=== PATIENT | male | born 1945 | race Caucasian/White ===

== ENCOUNTER → 2018-01-11 | Outpatient (CLI) | payer OTHER ==
[~2018-01-11] MED LIST: IBUPROFEN 800800 M1 PO; LIPITOR20 MG PO; LISINOPRIL10 MG PO; NAPROSYN500 MG PO; PREDNISONE 20 M20 M1 PO; PRILOSEC20 MG PO; TRAMADOL 50 MG50 MG PO; VALACYCLOVIR1000 MG PO
== END ==
LOC: M.CT 01-10 14:00
DX: N40.0 Benign prostatic hyperplasia without lower urinary tract symptoms (principal); N28.9 Disorder of kidney and ureter, unspecified; K68.9 Other disorders of retroperitoneum; M43.20 Fusion of spine, site unspecified; K57.30 Diverticulosis of large intestine without perforation or abscess without bleeding; I10 Essential (primary) hypertension; E78.5 Hyperlipidemia, unspecified; K21.9 Gastro-esophageal reflux disease without esophagitis

== ENCOUNTER → 2018-01-19 | Outpatient (CLI) | payer OTHER ==
[2018-01-19 10:15] LABS: CREATININE 1.4 mg/dL (0.6-1.3)
== END ==
LOC: M.LAB 09:49 → M.CT 11:00
PROVIDERS: Nurse Practitioner Family
DX: D18.03 Hemangioma of intra-abdominal structures (principal); K57.30 Diverticulosis of large intestine without perforation or abscess without bleeding; N40.0 Benign prostatic hyperplasia without lower urinary tract symptoms; R31.0 Gross hematuria; Z90.49 Acquired absence of other specified parts of digestive tract; R22.9 Localized swelling, mass and lump, unspecified

== ENCOUNTER → 2018-03-14 | Outpatient (CLI) | payer OTHER ==
[~2018-03-14] VITALS: Ht 175.3 cm; Wt 93.4 kg
[2018-03-14] VITALS (11 sets, daily range): BP systolic 90–1104; BP diastolic 60–72
[2018-03-14 09:16] LABS: HEMATOCRIT 44.8 % (42.0-52.0); HEMOGLOBIN 15.3 gm/dL (14.0-18.0); MCH 26.9 pg (26.0-34.0); MCHC 34.1 g/dL (28.0-37.0); MCV 78.9 fL (80.0-100.0); MPV 8.9 fl. (7.2-11.1); RBC 5.68 mil/uL (4.50-6.00); RDW-CV 15.1 % (10.5-14.5); WBC 5.1 thou/uL (4.0-11.0)
[2018-03-14 09:22] LABS: CALCIUM 8.6 mg/dL (8.5-10.1); CREATININE 1.3 mg/dL (0.6-1.3); POTASSIUM 3.7 mmol/L (3.5-5.1)
[2018-03-14 09:27] LABS: ALBUMIN 3.9 g/dL (3.4-5.0); TOTAL BILIRUBIN 0.7 mg/dL (<0.1-1.0); TOTAL PROTEIN 6.9 g/dL (6.4-8.2)
[2018-03-14 09:42] LABS: APTT 27.3 Seconds (25.0-31.3); INR 1.1; PROTIME 10.6 Seconds (9.20-11.50)
--- NOTE | 2018-06-08 15:08 | PATH ---
[address] [address] PATHOLOGY RPT PROCEDURE Name: JORGE VIDAL III Room: [facility]#: [id number] Admission: 03/14/18 Date of : 43 Discharge: Report #: [id number] Path Case #: [id number] [facility] Accession Number: [id number] . 01 Material submitted: . RETROPERITONEAL MASS LEFT . 01 Clinical history: . Retroperitoneal mass needle biopsy . 02 Diagnosis: Left retroperitoneal mass, image-guided core biopsies: - Myelolipoma. See comment. [facility] [place]/03/16/2018 . 02 Comment: Multiple skinny needle cores show benign-appearing myeloid elements in association with fat typical of myelolipoma. Reviewed with Dr. Rebekah Cuevas (hematopathologist), who agrees with the diagnosis. Preliminary findings relayed to Dr. Blanca at approximately 10:50 on 03/15/2018. (ROGER:david;03/16/2018) . 02 Electronically signed: . Conrad Araiza MD, Pathologist NPI- [id number] . 01 Gross description: . The specimen is received in formalin, labeled "Jorge Vidal III, left retroperitoneal mass", are several mccoy brown tissue cores ranging from 0.6 cm up to 0.1 cm in greatest dimension and measuring 0.6 x 0.2 cm in aggregate, entirely submitted in A1-A3. ([facility]; 03/14/2018) Also received in Jimenez's fixative are three cores of soft tissues, labeled "Jorge Vidal III, left retroperitoneal mass". The speicmen is filtered and entirely submitted in cassette A4. SHS/SHS . 02 Pathologist provided ICD-10: D17.79 . 02 CPT . 564361 Performed at: [address] [id number] MD Yves Olivas MD Phone: [phone] Performed at: 02 [place] [address] PATHOLOGY RPT PROCEDURE Name: JORGE VIDAL III Room: [facility]#: [id number] Admission: 03/14/18 Date of : 43 Discharge: Report #: [id number] Path Case #: [id number] [address] [place], [place] [address], [place] [id number] MD Cornad Araiza MD Phone: [phone]
== END | disposition home or self-care (01) ==
LOC: M.CT 07:56 → M.LAB 08:00 → M.INT 09:00 → M.CT 09:00
PROVIDERS: Radiology Diagnostic Radiology
DX: D17.79 Benign lipomatous neoplasm of other sites (principal); G51.0 Bell's palsy; I10 Essential (primary) hypertension; E78.00 Pure hypercholesterolemia, unspecified; M19.90 Unspecified osteoarthritis, unspecified site; Z98.890 Other specified postprocedural states; Z79.899 Other long term (current) drug therapy; Z79.01 Long term (current) use of anticoagulants

== ENCOUNTER → 2021-09-24 | Outpatient (CLI) | payer OTHER | LOC: M.RAD 09:43 | PROVIDERS: ATTEND Nurse Practitioner Family | DX: M81.0 Age-related osteoporosis without current pathological fracture (principal); M85.88 Other specified disorders of bone density and structure, other site ==